=== PATIENT | female | born 1995 | race Two or more races ===

== ENCOUNTER 2016-04-02 19:52 | Emergency (ER) | payer OTHER ==
[~2016-04-02] VITALS: Ht 162.6 cm; Wt 65.8 kg
[~2016-04-02 19:52] MED LIST: CLONAZEPAM1 MG PO; DIMETAPP PO; Desyrel PO; FLUOXETINE HCL40 MG PO; INTUNIV1 MG PO; MOTRIN800 MG PO; NEXIUM40 MG PO; PERCOCET 5/31 TABLET PO; PRENATAL TABLE1 EAC3 PO; PROAIR HFA8.5 GM IH; REGLAN5 MG PO; VENTOLIN HFA18 GM IH; WELLBUTRIN XL150 MG PO; ZOFRAN4 MG PO
[2016-04-02 19:59] VITALS: BP 117/64
[2016-04-02] MEDS ORDERED: PRENATAL GUMMI1 EACH PO (20:25)
[2016-04-02 20:37] LABS: HEMATOCRIT 35.8 % (36.0-46.0); MCHC 35.2 G/DL (30.0-36.0); MCV 85.2 FL (83-99); MEAN PLAT.VOLUME 11.4 uM^3 (9.5-12.4); PLATELET COUNT 241 K/uL (156-360); RBC DIS.WIDTH-CV 12.6 % (11.8-14.6); RBC DIS.WIDTH-SD 38.2 % (39-53); WHITE BLOOD COUNT 8.1 K/uL (4.1-10.2)
[2016-04-02 21:31] LABS: ADD MIUA? YES; BILIRUBIN NEGATIVE; BLOOD NEGATIVE; COLOR YELLOW ((YELLOW)); GLUCOSE (STRIP) NEGATIVE; KETONES NEGATIVE; LEUKOCYTES SMALL; NITRITE NEGATIVE; PROTEIN (STRIP) NEGATIVE; SPECIFIC GRAVITY 1.017 (1.000-1.030); UROBILINOGEN 0.2 MG/DL (0.2-1.0)
[2016-04-02 21:49] LABS: BACTERIA NONE SEEN /HPF; EPITHELIAL CELLS 1+ /HPF; HYALINE CASTS 0-5 /LPF; MUCUS TRACE /LPF; RED BLOOD CELLS 0-5 /HPF (0-5); UCUL ADDED? NO; UNCLASSIFIED CRYSTALS 1+ /HPF
== END 2016-04-03 00:13 | disposition left against medical advice (07) ==
LOC: EME 19:52
DX: O20.0 Threatened abortion (principal); Z3A.10 10 weeks gestation of pregnancy
CPT/HCPCS: 76801; 81003; 84702; 85027; 99281; 99284

== ENCOUNTER 2016-06-06 20:14 | Emergency (ER) | payer OTHER ==
[~2016-06-06] VITALS: Ht 162.6 cm; Wt 65.7 kg
[~2016-06-06 20:14] MED LIST changes: +PRENATAL GUMMI1 EACH PO
[2016-06-06 20:33] LABS: HEMATOCRIT 33.8 % (36.0-46.0); MCH 31.1 PG (29.0-34.0); MCHC 34.9 G/DL (30.0-36.0); MCV 88.9 FL (83-99); MEAN PLAT.VOLUME 11.9 uM^3 (9.5-12.4); PLATELET COUNT 227 K/uL (156-360); RBC DIS.WIDTH-CV 12.8 % (11.8-14.6); RBC DIS.WIDTH-SD 41.8 % (39-53); WHITE BLOOD COUNT 8.6 K/uL (4.1-10.2)
[2016-06-06 21:47] LABS: ADD MIUA? YES; BILIRUBIN NEGATIVE; BLOOD NEGATIVE; COLOR YELLOW ((YELLOW)); GLUCOSE (STRIP) NEGATIVE; KETONES NEGATIVE; LEUKOCYTES SMALL; NITRITE NEGATIVE; PROTEIN (STRIP) NEGATIVE; SPECIFIC GRAVITY 1.015 (1.000-1.030); UROBILINOGEN 0.2 MG/DL (0.2-1.0)
[2016-06-06 22:15] LABS: BACTERIA NONE SEEN /HPF; EPITHELIAL CELLS 1+ /HPF; MUCUS TRACE /LPF; RED BLOOD CELLS 0-5 /HPF (0-5); UCUL ADDED? NO
[2016-06-06 23:18] VITALS: BP 121/63
== END 2016-06-06 23:20 | disposition home or self-care (01) ==
LOC: EME 20:14
DX: O26.892 Other specified pregnancy related conditions, second trimester (principal); R10.9 Unspecified abdominal pain; O99.512 Diseases of the respiratory system complicating pregnancy, second trimester; J45.909 Unspecified asthma, uncomplicated; O99.342 Other mental disorders complicating pregnancy, second trimester; F32.9 Major depressive disorder, single episode, unspecified; O99.612 Diseases of the digestive system complicating pregnancy, second trimester; K21.9 Gastro-esophageal reflux disease without esophagitis; Z87.891 Personal history of nicotine dependence; Z3A.20 20 weeks gestation of pregnancy
CPT/HCPCS: 76805; 81003; 84702; 85027; 86900; 86901; 99281; 99285

== ENCOUNTER 2016-07-04 23:05 | Outpatient (CLI) | payer OTHER ==
[~2016-07-04] VITALS: Ht 160 cm; Wt 63.5 kg
[2016-07-04 23:42] VITALS: BP 127/64
[2016-07-05 01:09] LABS: EOSINOPHIL (%) 1.5 % (0-5); EOSINOPHIL COUNT 0.1 K/uL (0-0.3); HEMATOCRIT 34.3 % (36.0-46.0); IMMATURE GRANULOCYTE (%) 0.5 % (0.0-0.7); IMMATURE GRANULOCYTE COUNT 0.1 K/uL; INSTRUMENT ABS NEUTROPHIL CT 5.2 K/uL; LYMPHOCYTE COUNT 3.3 K/uL (1.0-2.8); MCHC 33.8 G/DL (30.0-36.0); MCV 91.7 FL (83-99); MEAN PLAT.VOLUME 11.7 uM^3 (9.5-12.4); MONOCYTE (%) 8.7 % (3-12); MONOCYTE COUNT 0.8 K/uL (0-0.8); NEUTROPHIL (%) 54.1 % (45-76); NEUTROPHIL COUNT 5.2 K/uL (1.8-6.4); PLATELET COUNT 238 K/uL (156-360); RBC DIS.WIDTH-SD 43.6 % (39-53); RED BLOOD COUNT 3.74 M/uL (3.80-5.20); WHITE BLOOD COUNT 9.6 K/uL (4.1-10.2)
[2016-07-05 01:12] LABS: ADD MIUA? YES; BILIRUBIN NEGATIVE; BLOOD NEGATIVE; COLOR STRAW ((YELLOW)); GLUCOSE (STRIP) NEGATIVE; KETONES NEGATIVE; LEUKOCYTES SMALL; NITRITE NEGATIVE; PROTEIN (STRIP) NEGATIVE; SPECIFIC GRAVITY 1.009 (1.000-1.030); UROBILINOGEN 0.2 MG/DL (0.2-1.0)
[2016-07-05 01:20] LABS: BACTERIA RARE /HPF; EPITHELIAL CELLS RARE /HPF; MUCUS NONE SEEN /LPF; RED BLOOD CELLS 0-5 /HPF (0-5); UCUL ADDED? NO; WHITE BLOOD CELLS 0-5 /HPF (0-5)
[2016-07-05 01:22] LABS: AMPHETAMINE NEGATIVE (500 ng/mL); BARBITURATES NEGATIVE (200 ng/mL); BENZODIAZEPINES NEGATIVE (150 ng/mL); COCAINE NEGATIVE (150 ng/mL); INTERNAL CONTROLS VALID? YES; METHADONE NEGATIVE (200 ng/mL); METHAMPHETAMINE NEGATIVE (500 ng/mL); OPIATES (MORPHINE) NEGATIVE (100 ng/mL); OXYCODONE NEGATIVE (100 ng/mL); PHENCYCLIDINE NEGATIVE (25 ng/mL); PROPOXYPHENE NEGATIVE (300 ng/mL); THC CANNABINOIDS NEGATIVE (50 ng/mL); TRICYCLIC ANTIDEPRESSANTS NEGATIVE (300 ng/mL)
[2016-07-05 01:49] VITALS: BP 126/64
[2016-07-05 03:12] VITALS: BP 105/54
[2016-07-05 04:30] LABS: CANDIDA DNA PROBE NEGATIVE; GARDNERELLA DNA PROBE POSITIVE; INTERNAL CONTROL VALID? YES
[2016-07-05 06:53] VITALS: BP 108/56
[2016-07-05] MEDS ORDERED: FLAGYL500 MG PO (07:03)
== END 2016-07-05 07:45 | disposition home or self-care (01) ==
LOC: LDRP-OP 23:05 → 2WEST 23:06
PROVIDERS: Midwife; Obstetrics & Gynecology
DX: O46.92 Antepartum hemorrhage, unspecified, second trimester (principal); O26.892 Other specified pregnancy related conditions, second trimester; R10.30 Lower abdominal pain, unspecified; Z3A.23 23 weeks gestation of pregnancy; Z87.891 Personal history of nicotine dependence; Z87.898 Personal history of other specified conditions
CPT/HCPCS: 59025; 76805; 81003; 85025; 85460; 86870; 86900; 86901; 86905; 87480; 87510; 87660; G0378; J0702; J2270; J2550; J2790; J7120

== ENCOUNTER 2016-07-05 23:22 | Outpatient (CLI) | payer OTHER ==
[~2016-07-05 23:22] MED LIST changes: +FLAGYL500 MG PO
[2016-07-05 23:42] VITALS: BP 131/75
== END 2016-07-06 01:15 | disposition home or self-care (01) ==
LOC: LDRP-OP 23:22 → 2WEST 23:23 → LDRP-OP 11-25 07:52
DX: O46.92 Antepartum hemorrhage, unspecified, second trimester (principal); O23.592 Infection of other part of genital tract in pregnancy, second trimester; N76.0 Acute vaginitis; Z3A.24 24 weeks gestation of pregnancy; O26.892 Other specified pregnancy related conditions, second trimester; R10.9 Unspecified abdominal pain
CPT/HCPCS: 59025; G0378; J0702

== ENCOUNTER 2016-07-11 19:42 | Emergency (ER) | payer OTHER ==
[~2016-07-11] VITALS: Ht 162.6 cm; Wt 67.1 kg
[2016-07-11 20:24] LABS: HEMATOCRIT 41.5 % (36.0-46.0); MCHC 33.7 G/DL (30.0-36.0); MEAN PLAT.VOLUME 11.2 uM^3 (9.5-12.4); PLATELET COUNT 255 K/uL (156-360); RBC DIS.WIDTH-CV 12.9 % (11.8-14.6); RBC DIS.WIDTH-SD 43.5 % (39-53); WHITE BLOOD COUNT 12.5 K/uL (4.1-10.2)
[2016-07-11 20:30] LABS: CHLORIDE 101 mEq/L (99-109); POTASSIUM 4.1 mEq/L (3.7-5.4); SODIUM 133 mEq/L (136-147)
[2016-07-11 20:32] LABS: GLUCOSE 101 mg/dL (70-99)
[2016-07-11 20:33] LABS: ANION GAP 9 MEQ/L (2-14)
[2016-07-11 20:36] LABS: ALKALINE PHOSPHATASE 79 IU/L (3-129); GFR ESTIMATE (CALCULATED) > 59 mL/min/
[2016-07-11 20:37] LABS: UREA NITROGEN (BUN) 16 mg/dL (9-23)
[2016-07-11 20:44] LABS: QUANTITATIVE HCG 9871.6 MIU/ML
[2016-07-11 20:54] LABS: RED BLOOD COUNT 4.51 M/uL (3.80-5.20)
[2016-07-11] MEDS ORDERED: ZOFRAN4 MG PO (22:43)
[2016-07-11 22:51] LABS: ADD MIUA? YES; BILIRUBIN NEGATIVE; BLOOD NEGATIVE; COLOR YELLOW ((YELLOW)); GLUCOSE (STRIP) NEGATIVE; KETONES 80; LEUKOCYTES NEGATIVE; NITRITE NEGATIVE; PROTEIN (STRIP) 30; SPECIFIC GRAVITY 1.028 (1.000-1.030); UROBILINOGEN 0.2 MG/DL (0.2-1.0)
[2016-07-11 22:57] VITALS: BP 109/61
[2016-07-11 23:02] LABS: BACTERIA 1+ /HPF; EPITHELIAL CELLS RARE /HPF; HYALINE CASTS 0-5 /LPF; MUCUS TRACE /LPF; RED BLOOD CELLS 0-5 /HPF (0-5); UCUL ADDED? NO; WHITE BLOOD CELLS 0-5 /HPF (0-5)
== END 2016-07-11 22:59 | disposition home or self-care (01) ==
LOC: EME 19:42 → EXP 19:42
DX: O21.9 Vomiting of pregnancy, unspecified (principal); R19.7 Diarrhea, unspecified; Z3A.24 24 weeks gestation of pregnancy; Z87.891 Personal history of nicotine dependence
CPT/HCPCS: 80053; 81003; 84702; 85027; 99281; 99284; J2405; J7030

== ENCOUNTER → 2016-08-10 | Outpatient (CLI) | payer OTHER ==
[~2016-08-10] VITALS: Ht 165.1 cm; Wt 70.0 kg
[2016-08-10 18:11] VITALS: BP 117/68
== END | disposition home or self-care (01) ==
LOC: IVINF 15:30
DX: O26.892 Other specified pregnancy related conditions, second trimester (principal); Z3A.28 28 weeks gestation of pregnancy; Z67.91 Unspecified blood type, Rh negative
CPT/HCPCS: 96372

== ENCOUNTER 2016-08-22 15:44 | Outpatient (CLI) | payer OTHER ==
[2016-08-22 16:05] VITALS: BP 121/64
[2016-08-22 17:18] LABS: ADD MIUA? YES; BILIRUBIN NEGATIVE; BLOOD NEGATIVE; COLOR YELLOW ((YELLOW)); GLUCOSE (STRIP) NEGATIVE; KETONES NEGATIVE; LEUKOCYTES SMALL; NITRITE NEGATIVE; PROTEIN (STRIP) NEGATIVE; SPECIFIC GRAVITY 1.015 (1.000-1.030); UROBILINOGEN 0.2 MG/DL (0.2-1.0)
[2016-08-22 18:16] LABS: BACTERIA RARE /HPF; EPITHELIAL CELLS 2+ /HPF; MUCUS TRACE /LPF; RED BLOOD CELLS 0-5 /HPF (0-5); UCUL ADDED? NO; WHITE BLOOD CELLS 0-5 /HPF (0-5)
[2016-08-22] MEDS ORDERED: FLEXERIL5 MG PO (19:51)
[2016-08-22 22:27] LABS: CANDIDA DNA PROBE NEGATIVE; GARDNERELLA DNA PROBE NEGATIVE; INTERNAL CONTROL VALID? YES
== END 2016-08-22 20:25 | disposition home or self-care (01) ==
LOC: LDRP-OP → 2WEST 15:45 → LDRP-OP 11-25 02:05
PROVIDERS: Midwife
DX: O26.893 Other specified pregnancy related conditions, third trimester (principal); Z3A.30 30 weeks gestation of pregnancy; M54.5 Low back pain
CPT/HCPCS: 59025; 81003; 87480; 87510; 87660; G0378

== ENCOUNTER 2016-09-08 15:47 | Outpatient (CLI) | payer OTHER ==
[~2016-09-08] VITALS: Ht 165.1 cm; Wt 70.0 kg
[~2016-09-08 15:47] MED LIST changes: +FLEXERIL5 MG PO
[2016-09-08 16:15] VITALS: BP 118/63
[2016-09-08 17:37] LABS: AMPHETAMINES QUANT VALUE 0 NG/ML; BARBITUATES QUANT VALUE 0 NG/ML; BENZODIAZEPINES QUANT VALUE 0 NG/ML; BENZODIAZEPINES, URINE SCREEN Negative (200 ng/mL); MARIJUANA QUANT VALUE 0 NG/ML; OPIATES QUANTITATIVE VALUE 0 NG/ML; PHENCYCLIDINE QUANT VALUE 0 NG/ML
== END 2016-09-08 17:10 | disposition home or self-care (01) ==
LOC: LDRP-OP 15:47 → 2WEST 15:49 → LDRP-OP 11-25 21:38
PROVIDERS: Nurse Practitioner
DX: O35.8XX0 Maternal care for other (suspected) fetal abnormality and damage, not applicable or unspecified (principal); Z3A.33 33 weeks gestation of pregnancy
CPT/HCPCS: 59025; 80306 90; G0378

== ENCOUNTER 2016-09-19 17:23 | Outpatient (CLI) | payer OTHER ==
[~2016-09-19] VITALS: Ht 162.6 cm; Wt 65.8 kg
[2016-09-19 17:46] VITALS: BP 117/72
[2016-09-19 18:00] VITALS: BP 109/57
== END 2016-09-19 19:25 | disposition home or self-care (01) ==
LOC: LDRP-OP 17:23 → 2WEST 17:25 → LDRP-OP 11-25 22:13
DX: O35.8XX0 Maternal care for other (suspected) fetal abnormality and damage, not applicable or unspecified (principal); Z3A.34 34 weeks gestation of pregnancy
CPT/HCPCS: 59025; G0378

== ENCOUNTER 2016-10-04 22:40 | Outpatient (CLI) | payer OTHER ==
[2016-10-04 22:58] VITALS: BP 131/72
== END 2016-10-05 02:29 | disposition home or self-care (01) ==
LOC: LDRP-OP 22:40 → 2WEST 22:41 → LDRP-OP 10-05 07:21
DX: O47.00 False labor before 37 completed weeks of gestation, unspecified trimester (principal); Z3A.00 Weeks of gestation of pregnancy not specified
CPT/HCPCS: 59025; G0378

== ENCOUNTER 2016-10-17 18:24 | Inpatient (IN) | payer OTHER ==
[~2016-10-17] VITALS: Ht 165.1 cm; Wt 74.3 kg
[2016-10-17 19:24] LABS: EOSINOPHIL (%) 0.1 % (0-5); HEMATOCRIT 33.5 % (36.0-46.0); IMMATURE GRANULOCYTE (%) 0.4 % (0.0-0.7); IMMATURE GRANULOCYTE COUNT 0.1 K/uL; INSTRUMENT ABS NEUTROPHIL CT 8.8 K/uL; LYMPHOCYTE COUNT 2.4 K/uL (1.0-2.8); MCH 30.4 PG (29.0-34.0); MCHC 33.4 G/DL (30.0-36.0); MCV 90.8 FL (83-99); MEAN PLAT.VOLUME 12.1 uM^3 (9.5-12.4); MONOCYTE COUNT 0.7 K/uL (0-0.8); NEUTROPHIL (%) 73.3 % (45-76); NEUTROPHIL COUNT 8.8 K/uL (1.8-6.4); PLATELET COUNT 210 K/uL (156-360); RBC DIS.WIDTH-CV 12.3 % (11.8-14.6); RBC DIS.WIDTH-SD 40.5 % (39-53); RED BLOOD COUNT 3.69 M/uL (3.80-5.20); WHITE BLOOD COUNT 11.9 K/uL (4.1-10.2)
[2016-10-17 19:41] VITALS: BP 123/77
[2016-10-17 20:11] VITALS: BP 117/69
[2016-10-17 20:41] VITALS: BP 110/67
[2016-10-17 21:09] VITALS: BP 120/68
[2016-10-17 21:53] LABS: AMPHETAMINE NEGATIVE (500 ng/mL); BARBITURATES NEGATIVE (200 ng/mL); BENZODIAZEPINES NEGATIVE (150 ng/mL); COCAINE NEGATIVE (150 ng/mL); INTERNAL CONTROLS VALID? YES; METHADONE NEGATIVE (200 ng/mL); METHAMPHETAMINE NEGATIVE (500 ng/mL); OPIATES (MORPHINE) NEGATIVE (100 ng/mL); OXYCODONE NEGATIVE (100 ng/mL); PHENCYCLIDINE NEGATIVE (25 ng/mL); PROPOXYPHENE NEGATIVE (300 ng/mL); THC CANNABINOIDS NEGATIVE (50 ng/mL); TRICYCLIC ANTIDEPRESSANTS NEGATIVE (300 ng/mL)
[2016-10-17 22:15] VITALS: BP 125/61
[2016-10-17 23:28] VITALS: BP 105/60
[2016-10-18] VITALS (25 sets, daily range): BP systolic 110–146; BP diastolic 56–80
[2016-10-19 07:43] VITALS: BP 128/76
[2016-10-19 14:45] VITALS: BP 125/66
[2016-10-19 23:25] VITALS: BP 120/75
[2016-10-20] MEDS ORDERED: TYLENOL REGULA325 MG PO (07:24)
[2016-10-20 08:00] VITALS: BP 107/54
== END 2016-10-20 17:45 | disposition home or self-care (01) | DRG 775 ==
LOC: LDRP-OP 18:24 → 2WEST 18:26 → LDRP-OP 11-25 02:37
PROVIDERS: Advanced Practice Midwife
PROC: 3E0P7GC Introduction of Other Therapeutic Substance into Female Reproductive, Via Natural or Artificial Opening (ICD-10-PCS; 2016-10-17)
PROC: 10E0XZZ Delivery of Products of Conception, External Approach (ICD-10-PCS; principal; 2016-10-18)
PROC: 3E0S3BZ Introduction of Anesthetic Agent into Epidural Space, Percutaneous Approach (ICD-10-PCS; 2016-10-18)
DX: O36.5931 Maternal care for other known or suspected poor fetal growth, third trimester, fetus 1 (principal); O36.0931 Maternal care for other rhesus isoimmunization, third trimester, fetus 1; F33.9 Major depressive disorder, recurrent, unspecified; K21.9 Gastro-esophageal reflux disease without esophagitis; O62.3 Precipitate labor; J45.909 Unspecified asthma, uncomplicated; O99.52 Diseases of the respiratory system complicating childbirth; O99.62 Diseases of the digestive system complicating childbirth; Z37.0 Single live birth; O99.344 Other mental disorders complicating childbirth; O99.824 Streptococcus B carrier state complicating childbirth; F41.9 Anxiety disorder, unspecified; Z3A.38 38 weeks gestation of pregnancy; Z88.2 Allergy status to sulfonamides; Z91.013 Allergy to seafood
CPT/HCPCS: 83030; 85025; 86850; 86870; 86900; 86901; 94640; 99202; C1755; G0378; J0595; J2790; J3370; J7120

== ENCOUNTER 2017-01-06 18:07 | Emergency (ER) | payer OTHER ==
[~2017-01-06] VITALS: Ht 162.6 cm; Wt 66.7 kg
[~2017-01-06 18:07] MED LIST changes: +TYLENOL REGULA325 MG PO
[2017-01-06 18:31] LABS: HEMATOCRIT 37.3 % (36.0-46.0); MCH 30.2 PG (29.0-34.0); MCHC 33.2 G/DL (30.0-36.0); MEAN PLAT.VOLUME 11.4 uM^3 (9.5-12.4); PLATELET COUNT 275 K/uL (156-360); RBC DIS.WIDTH-CV 12.9 % (11.8-14.6); RBC DIS.WIDTH-SD 42.3 % (39-53); WHITE BLOOD COUNT 7.3 K/uL (4.1-10.2)
[2017-01-06 18:40] LABS: CHLORIDE 104 mEq/L (99-109); POTASSIUM 3.7 mEq/L (3.7-5.4); SODIUM 139 mEq/L (136-147)
[2017-01-06 18:43] LABS: GLUCOSE 82 mg/dL (70-99)
[2017-01-06 18:44] LABS: ANION GAP 8 MEQ/L (2-14)
[2017-01-06 18:45] LABS: TOTAL BILIRUBIN 0.3 mg/dL (0.0-1.0)
[2017-01-06 18:46] LABS: ALKALINE PHOSPHATASE 119 IU/L (3-129); GFR ESTIMATE (CALCULATED) > 59 mL/min/
[2017-01-06 18:47] LABS: UREA NITROGEN (BUN) 15 mg/dL (9-23)
[2017-01-06 18:57] LABS: QUANTITATIVE HCG < 4.0 MIU/ML
[2017-01-06 20:29] LABS: ADD MIUA? YES; BILIRUBIN NEGATIVE; BLOOD LARGE; COLOR YELLOW ((YELLOW)); GLUCOSE (STRIP) NEGATIVE; KETONES NEGATIVE; LEUKOCYTES TRACE; NITRITE NEGATIVE; PROTEIN (STRIP) 30; SPECIFIC GRAVITY 1.011 (1.000-1.030); UROBILINOGEN 0.2 MG/DL (0.2-1.0)
[2017-01-06 20:34] LABS: BACTERIA RARE /HPF; EPITHELIAL CELLS RARE /HPF; MUCUS TRACE /LPF; RED BLOOD CELLS 0-5 /HPF (0-5); UCUL ADDED? YES
[2017-01-06] MEDS ORDERED: INDOCIN50 MG PO (21:15)
[2017-01-06 21:32] LABS: PROTHROMBIN TIME 11.1 SEC (10.2-12.9)
[2017-01-06 23:05] VITALS: BP 135/62
[2017-01-08 12:39] LABS: CHLAMYDIA TRACHOMATIS NEGATIVE; NEISSERIA GONORRHOEAE NEGATIVE
== END 2017-01-06 22:43 | disposition home or self-care (01) ==
LOC: EME 18:07
PROVIDERS: Physician Assistant
DX: N94.6 Dysmenorrhea, unspecified (principal); N92.0 Excessive and frequent menstruation with regular cycle; F32.9 Major depressive disorder, single episode, unspecified; J45.909 Unspecified asthma, uncomplicated; K21.9 Gastro-esophageal reflux disease without esophagitis; Z87.891 Personal history of nicotine dependence; Z88.0 Allergy status to penicillin; Z88.2 Allergy status to sulfonamides; Z88.6 Allergy status to analgesic agent
CPT/HCPCS: 80053; 81003; 84702; 85027; 85610; 87086; 87210; 87491; 87591; 99281; 99284; J1885

== ENCOUNTER 2017-05-03 08:43 | Emergency (ER) | payer SELFPAY ==
[~2017-05-03] VITALS: Ht 162.6 cm; Wt 67.4 kg
[~2017-05-03 08:43] MED LIST changes: +INDOCIN50 MG PO
[2017-05-03] MEDS ORDERED: PROAIR HFA8.5 GM IH (09:35)
[2017-05-03] MEDS ORDERED: ZITHROMAX Z-PA250 MG PO (09:35)
[2017-05-03 09:56] VITALS: BP 114/72
== END 2017-05-03 09:57 | disposition home or self-care (01) ==
LOC: EME 08:43
DX: J20.9 Acute bronchitis, unspecified (principal); J45.909 Unspecified asthma, uncomplicated; Z88.6 Allergy status to analgesic agent; Z88.2 Allergy status to sulfonamides; Z88.0 Allergy status to penicillin
CPT/HCPCS: 99281; 99283

== ENCOUNTER 2017-05-26 15:41 | Emergency (ER) | payer SELFPAY ==
[~2017-05-26] VITALS: Ht 162.6 cm; Wt 65.9 kg
[~2017-05-26 15:41] MED LIST changes: +ZITHROMAX Z-PA250 MG PO
[2017-05-26] MEDS ORDERED: MEDROL DOSEPAK4 MG PO (17:50)
[2017-05-26] MEDS ORDERED: FLEXERIL10 MG PO (17:50)
[2017-05-26 18:05] VITALS: BP 128/95
== END 2017-05-26 18:08 | disposition home or self-care (01) ==
LOC: EME 15:41
DX: M62.838 Other muscle spasm (principal); K21.9 Gastro-esophageal reflux disease without esophagitis; F32.9 Major depressive disorder, single episode, unspecified; J45.909 Unspecified asthma, uncomplicated; Z88.6 Allergy status to analgesic agent; Z88.2 Allergy status to sulfonamides; Z88.0 Allergy status to penicillin; Z87.891 Personal history of nicotine dependence
CPT/HCPCS: 99281; 99284

== ENCOUNTER 2017-06-02 20:58 | Emergency (ER) | payer SELFPAY ==
[~2017-06-02] VITALS: Ht 162.6 cm; Wt 64.9 kg
[~2017-06-02 20:58] MED LIST changes: +FLEXERIL10 MG PO; +MEDROL DOSEPAK4 MG PO
[2017-06-02 21:30] LABS: HEMATOCRIT 39.2 % (36.0-46.0); HEMOGLOBIN 13.4 G/DL (11.9-15.5); MCH 29.6 PG (29.0-34.0); MCHC 34.2 G/DL (30.0-36.0); MCV 86.7 FL (83-99); PLATELET COUNT 264 K/uL (156-360); RBC DIS.WIDTH-CV 12.4 % (11.8-14.6); RBC DIS.WIDTH-SD 39.6 % (39-53); RED BLOOD COUNT 4.52 M/uL (3.80-5.20); WHITE BLOOD COUNT 11.9 K/uL (4.1-10.2)
[2017-06-02 21:58] LABS: ALBUMIN 4.5 G/DL (3.2-4.8); CHLORIDE 100 MEQ/L (99-109); POTASSIUM 3.7 MEQ/L (3.7-5.4); SODIUM 138 MEQ/L (136-147); TOTAL BILIRUBIN 0.6 MG/DL (0.0-1.0)
[2017-06-02 22:01] LABS: QUANTITATIVE HCG < 4.0 MIU/ML
[2017-06-02 22:04] LABS: ALKALINE PHOSPHATASE 94 IU/L (3-129); ALT (GPT) 11 IU/L (3-49); AST (GOT) 15 IU/L (2-34); CREATININE 0.7 MG/DL (0.6-1.3); GFR ESTIMATE (CALCULATED) > 59 mL/min/; GLUCOSE 93 mg/dL (70-99); TOTAL PROTEIN 8.5 G/DL (6.4-8.3); UREA NITROGEN (BUN) 11 mg/dL (9-23)
[2017-06-03 01:00] LABS: MONOSPOT (MONONUCLEOSIS SEROL) NEGATIVE
[2017-06-03] MEDS ORDERED: TYLENOL WITH C1 EACH PO (01:46)
[2017-06-03] MEDS ORDERED: ZITHROMAX Z-PA250 MG PO (01:46)
[2017-06-03 02:08] VITALS: BP 115/68
== END 2017-06-03 02:12 | disposition home or self-care (01) ==
LOC: EME 20:58
DX: J02.0 Streptococcal pharyngitis (principal); J36 Peritonsillar abscess; J45.909 Unspecified asthma, uncomplicated; K21.9 Gastro-esophageal reflux disease without esophagitis; F32.9 Major depressive disorder, single episode, unspecified; Z87.891 Personal history of nicotine dependence; Z88.6 Allergy status to analgesic agent; Z88.2 Allergy status to sulfonamides; Z88.0 Allergy status to penicillin; Z91.013 Allergy to seafood
CPT/HCPCS: 70491; 80053; 84702; 85027; 86308; 87651 90; 99281; 99284; J0696; J1100; J2405; J3010; J7030

== ENCOUNTER 2017-07-31 08:02 | Emergency (ER) | payer SELFPAY ==
[~2017-07-31] VITALS: Ht 162.6 cm; Wt 67.6 kg
[~2017-07-31 08:02] MED LIST changes: +TYLENOL WITH C1 EACH PO
[2017-07-31 09:24] LABS: HEMATOCRIT 39.7 % (36.0-46.0); HEMOGLOBIN 13.8 G/DL (11.9-15.5); MCH 30.3 PG (29.0-34.0); MCHC 34.8 G/DL (30.0-36.0); MCV 87.3 FL (83-99); RBC DIS.WIDTH-CV 12.9 % (11.8-14.6); RBC DIS.WIDTH-SD 41.2 % (39-53); RED BLOOD COUNT 4.55 M/uL (3.80-5.20); WHITE BLOOD COUNT 10.7 K/uL (4.1-10.2)
[2017-07-31 09:34] LABS: CHLORIDE 103 mEq/L (99-109); SODIUM 141 mEq/L (136-147)
[2017-07-31 09:35] LABS: GLUCOSE 89 mg/dL (70-99)
[2017-07-31 09:39] LABS: CREATININE 0.8 mg/dL (0.6-1.3); GFR ESTIMATE (CALCULATED) > 59 mL/min/
[2017-07-31 09:40] LABS: UREA NITROGEN (BUN) 10 mg/dL (9-23)
[2017-07-31 10:07] LABS: PLAT.SUFFICIENCY ADEQUATE; PLATELET COUNT 228 K/uL (156-360)
[2017-07-31 10:08] LABS: MONOSPOT (MONONUCLEOSIS SEROL) NEGATIVE
[2017-07-31 11:55] VITALS: BP 110/59
== END 2017-07-31 12:00 | disposition home or self-care (01) ==
LOC: EME 08:02
PROVIDERS: Nurse Practitioner Family
DX: J02.9 Acute pharyngitis, unspecified (principal); R59.1 Generalized enlarged lymph nodes; D72.829 Elevated white blood cell count, unspecified; Z88.6 Allergy status to analgesic agent; Z88.2 Allergy status to sulfonamides; Z88.0 Allergy status to penicillin
CPT/HCPCS: 70491; 80048; 85027; 86308; 87081; 87651 90; 99281; 99285; J1885; J7120

== ENCOUNTER 2017-09-11 13:26 | Emergency (ER) | payer SELFPAY ==
[~2017-09-11] VITALS: Ht 162.6 cm; Wt 65.6 kg
[2017-09-11] MEDS ORDERED: LIDODERM 5% P1 PATCH TD (15:03)
[2017-09-11] MEDS ORDERED: FLEXERIL10 MG PO (15:03)
[2017-09-11 15:52] VITALS: BP 93/56
== END 2017-09-11 15:53 | disposition home or self-care (01) ==
LOC: EME 13:26
DX: S39.012A Strain of muscle, fascia and tendon of lower back, initial encounter (principal); G89.29 Other chronic pain; M54.30 Sciatica, unspecified side; F32.9 Major depressive disorder, single episode, unspecified; J45.909 Unspecified asthma, uncomplicated; K21.9 Gastro-esophageal reflux disease without esophagitis; F17.200 Nicotine dependence, unspecified, uncomplicated; Z88.6 Allergy status to analgesic agent; Z88.2 Allergy status to sulfonamides; Z88.0 Allergy status to penicillin
CPT/HCPCS: 72100; 99281; 99284; J1885